=== PATIENT | female | born 1995 | race Caucasian/White ===

== ENCOUNTER 2019-07-15 21:28 | Emergency (ER) | payer MEDICARE, MEDICAID ==
[~2019-07-15] VITALS: Ht 172.7 cm; Wt 86.8 kg
[2019-07-15 21:34] VITALS: Ht 172.7 cm; Wt 86.8 kg
[2019-07-16] MEDS ORDERED: NAPROSYN500 MG PO (00:14)
[2019-07-16 00:23] LABS: APPEARANCE CLEAR (CLEAR); BILIRUBIN NEGATIVE (NEGATIVE); COLOR YELLOW (YELLOW); GLUCOSE 1000 mg/dL (NEGATIVE); HCG URINE NEGATIVE (NEGATIVE); KETONE NEGATIVE (NEGATIVE); NITRITE NEGATIVE (NEGATIVE); PROTEIN NEGATIVE (NEGATIVE); UROBILINOGEN NORMAL (NORMAL)
[2019-07-16 00:24] LABS: BACTERIA NONE SEEN /hpf (NEGATIVE); EPITHELIAL CELLS 0-5 /hpf (0-5); RED CELLS - URINE NONE SEEN /hpf (0-5); WHITE CELLS - URINE 0-5 /hpf (NEGATIVE)
[2019-07-16] MEDS ORDERED: GLUCOPHAGE500 MG PO (00:45)
[2019-07-16] MEDS ORDERED: LANTUS SOL100 UNIT/1 SC (00:45)
[2019-07-16 01:01] VITALS: BP 145/88
== END 2019-07-16 01:01 | disposition home or self-care (01) ==
LOC: D.ER 21:28
PROVIDERS: Emergency Medicine
DX: S60.211A Contusion of right wrist, initial encounter (principal); Y04.0XXA Assault by unarmed brawl or fight, initial encounter; S49.91XA Unspecified injury of right shoulder and upper arm, initial encounter; E11.9 Type 2 diabetes mellitus without complications; F17.210 Nicotine dependence, cigarettes, uncomplicated

== ENCOUNTER 2019-10-11 18:46 | Emergency (ER) | payer MEDICAID ==
[~2019-10-11] VITALS: Ht 172.7 cm; Wt 86.2 kg
[~2019-10-11 18:46] MED LIST: GLUCOPHAGE500 MG PO; LANTUS SOL100 UNIT/1 SC; NAPROSYN500 MG PO
[2019-10-11 19:00] VITALS: Ht 172.7 cm; Wt 86.2 kg
[2019-10-11] MEDS ORDERED: NEURONTIN 300300 MG PO (19:08)
[2019-10-11] MEDS ORDERED: INDOCIN25 MG PO ×2 (19:10→19:47)
[2019-10-11] MEDS ORDERED: GLUCOPHAGE500 MG PO (19:47)
[2019-10-11] MEDS ORDERED: GABAPENTIN300 MG PO (19:47)
[2019-10-11 19:59] LABS: BASOPHILS 0.3 % (0-2); EOSINOPHILS 3.8 % (0-7); HEMOGLOBIN 11.8 g/dL (12-16); IMMATURE GRANULOCYTES 0.1 % (0-5); LYMPHOCYTES 27.6 % (15-50); MCH 27.8 pg (26.0-34.0); MCHC 31.9 g/dL (31.0-37.0); MCV 87.3 fL (80.0-100.0); MEAN PLATELET VOLUME 9.1 fL (7.4-10.4); MONOCYTES 5.3 % (2-11); NEUTROPHILS 62.9 % (40-80); PLATELET COUNT 381 10x3/uL (130-400); RBC 4.24 10x6/uL (4.00-5.40); RDW 15.4 % (11.5-14.5); WBC 6.8 10x3/uL (4.8-10.8)
[2019-10-11 20:05] LABS: KETONE - SERUM NEGATIVE (NEGATIVE)
[2019-10-11 20:07] LABS: CALC OSMOLALITY 282 mosm/kg (275-300); CALCIUM 8.9 mg/dL (8.5-10.1); CHLORIDE - SERUM 105 mmol/L (98-107); CREATININE - SERUM 0.6 mg/dL (0.6-1.3); GLUCOSE 167 mg/dL (74-106); POTASSIUM - SERUM 3.6 mmol/L (3.5-5.1); SODIUM 139 mmol/L (136-145); UREA NITROGEN 15 mg/dL (7-18); eGFR NON AFRICAN AMERICAN > 90 mL/min (90-120)
[2019-10-11 20:14] LABS: ALBUMIN 3.4 g/dL (3.4-5.0); ALKALINE PHOSPHATASE 77 U/L (46-116); ALT (SGPT) 21 U/L (10-68); BILIRUBIN - TOTAL 0.22 mg/dL (0.2-1.3); MAGNESIUM - SERUM 1.8 mg/dL (1.8-2.4); PROTEIN - SERUM 7.4 g/dL (6.4-8.2)
[2019-10-11 20:19] LABS: APPEARANCE HAZY (CLEAR); BILIRUBIN NEGATIVE (NEGATIVE); COLOR YELLOW (YELLOW); GLUCOSE 100 mg/dL (NEGATIVE); KETONE NEGATIVE (NEGATIVE); NITRITE NEGATIVE (NEGATIVE); PROTEIN NEGATIVE (NEGATIVE); UROBILINOGEN NORMAL (NORMAL)
[2019-10-11 20:24] LABS: BACTERIA FEW /hpf (NEGATIVE); RED CELLS - URINE NONE SEEN /hpf (0-5); WHITE CELLS - URINE 0-5 /hpf (NEGATIVE)
[2019-10-11 20:53] VITALS: BP 117/67
== END 2019-10-11 20:54 | disposition home or self-care (01) ==
LOC: D.ER 18:46
PROVIDERS: Emergency Medicine
DX: E11.9 Type 2 diabetes mellitus without complications (principal); Z76.0 Encounter for issue of repeat prescription; J45.909 Unspecified asthma, uncomplicated; Z79.84 Long term (current) use of oral hypoglycemic drugs; Z79.4 Long term (current) use of insulin; Z72.0 Tobacco use

== ENCOUNTER 2019-11-11 18:13 | Emergency (ER) | payer MEDICARE, MEDICAID ==
[~2019-11-11] VITALS: Ht 172.7 cm; Wt 88.9 kg
[~2019-11-11 18:13] MED LIST changes: +GABAPENTIN300 MG PO; +INDOCIN25 MG PO; +NEURONTIN 300300 MG PO
[2019-11-11 18:21] VITALS: Ht 172.7 cm; Wt 88.9 kg
[2019-11-11] MEDS ORDERED: METHOCARBAMOL750 MG NG (19:02)
[2019-11-11] MEDS ORDERED: TALWIN NX1 TAB PO (19:02)
[2019-11-11 19:19] LABS: HCG SERUM NEGATIVE (NEGATIVE)
[2019-11-11] MEDS ORDERED: NAPROSYN500 MG PO (20:21)
[2019-11-11 23:54] VITALS: BP 128/53
== END 2019-11-11 20:50 | disposition home or self-care (01) ==
LOC: D.ER 18:13
PROVIDERS: Family Medicine
DX: M54.5 Low back pain (principal); M79.10 Myalgia, unspecified site; E11.9 Type 2 diabetes mellitus without complications; Z79.4 Long term (current) use of insulin; J45.909 Unspecified asthma, uncomplicated; Z72.0 Tobacco use

== ENCOUNTER 2020-07-13 15:30 | Outpatient (CLI) | payer MEDICARE, MEDICAID ==
[2019-12-07 14:18] VITALS: BMI 28.9
[~2020-07-13 15:30] MED LIST changes: +METHOCARBAMOL750 MG NG; +TALWIN NX1 TAB PO
[2020-07-13 17:11] LABS: BILIRUBIN NEGATIVE (NEGATIVE); KETONE NEGATIVE (NEGATIVE); NITRITE NEGATIVE (NEGATIVE); UROBILINOGEN NORMAL mg/dL (< 2)
[2020-07-13 17:14] LABS: WHITE CELLS - URINE 0-5 HPF (0-4)
[2020-07-13 17:15] LABS: BACTERIA MANY HPF (NONE SEEN)
[2020-07-14 16:55] LABS: PROTEIN - URINE 15.3 mg/dL (0.0-11.9)
== END 2020-07-13 17:30 | disposition home or self-care (01) ==
LOC: D.LDO 15:30
PROVIDERS: ATTEND Obstetrics & Gynecology
DX: O26.893 Other specified pregnancy related conditions, third trimester (principal); R80.9 Proteinuria, unspecified; E11.9 Type 2 diabetes mellitus without complications; Z79.4 Long term (current) use of insulin; R51 Headache; I10 Essential (primary) hypertension

== ENCOUNTER → 2020-07-23 15:22 | Outpatient (CLI) | payer MEDICARE, MEDICAID ==
[2019-12-07 14:18] VITALS: BMI 28.9
[2020-07-23 16:55] LABS: BILIRUBIN NEGATIVE (NEGATIVE); KETONE NEGATIVE (NEGATIVE); NITRITE NEGATIVE (NEGATIVE); UROBILINOGEN NORMAL mg/dL (< 2)
== END | disposition home or self-care (01) ==
LOC: D.LDO 15:22
PROVIDERS: ATTEND Student in an Organized Health Care Education/Training Program
DX: O26.893 Other specified pregnancy related conditions, third trimester (principal); Z3A.31 31 weeks gestation of pregnancy; M54.9 Dorsalgia, unspecified; O24.419 Gestational diabetes mellitus in pregnancy, unspecified control

== ENCOUNTER → 2021-02-17 12:01 | Outpatient (CLI) | payer MEDICARE ==
[2019-12-07 14:18] VITALS: BMI 28.9
== END | disposition home or self-care (01) ==
LOC: D.CT 01-28 14:00
PROVIDERS: ATTEND Family Medicine
DX: R41.82 Altered mental status, unspecified (principal)

== ENCOUNTER → 2021-02-28 09:53 | Outpatient (CLI) | payer OTHER ==
[2019-12-07 14:18] VITALS: BMI 28.9
== END | disposition home or self-care (01) ==
LOC: D.RAD 09:53
PROVIDERS: ATTEND Pediatrics
DX: Z02.71 Encounter for disability determination (principal)